=== PATIENT | male | born 1935 | race Caucasian/White ===

== ENCOUNTER → 2017-01-08 | Outpatient (CLI) | payer OTHER | LOC: BMCIMAGING 08:56 | PROVIDERS: ATTEND Internal Medicine | DX: R91.8 Other nonspecific abnormal finding of lung field (principal); I10 Essential (primary) hypertension; I25.10 Atherosclerotic heart disease of native coronary artery without angina pectoris; N40.1 Benign prostatic hyperplasia with lower urinary tract symptoms; F32.9 Major depressive disorder, single episode, unspecified; Z77.090 Contact with and (suspected) exposure to asbestos; Z87.39 Personal history of other diseases of the musculoskeletal system and connective tissue ==

== ENCOUNTER → 2017-01-17 | Outpatient (CLI) | payer OTHER | LOC: FIMAGING 12:50 | PROVIDERS: ATTEND Internal Medicine | DX: R91.8 Other nonspecific abnormal finding of lung field (principal); J47.9 Bronchiectasis, uncomplicated; I25.10 Atherosclerotic heart disease of native coronary artery without angina pectoris; I77.810 Thoracic aortic ectasia ==

== ENCOUNTER → 2017-04-16 | Day surgery (SDC) | payer OTHER ==
[2017-04-16 09:03] LABS: HEMATOCRIT 43.1 % (40.0-51.0)
[2017-04-16 09:11] LABS: INR 1.06 (0.83-1.16); PROTIME(PATIENT) 13.7 SEC (12.0-15.0)
[2017-04-16 09:12] LABS: APTT 31.3 SEC (23.0-38.0)
== END | disposition home or self-care (01) ==
LOC: FIMAGING 07:06
PROVIDERS: ATTEND Internal Medicine Critical Care Medicine
DX: R91.1 Solitary pulmonary nodule (principal); J47.9 Bronchiectasis, uncomplicated

== ENCOUNTER 2017-05-16 06:56 | Day surgery (SDC) | payer OTHER ==
[2017-05-16] MEDS ORDERED: NS 1,000 ML IV SCH (07:15)
[2017-05-16] MEDS ORDERED: NALOXONE HCL 0.4 MG/ML INJ ONE (08:08)
[2017-05-16] MEDS ORDERED: fentaNYL 100 MCG/2 ML INJ ONE (08:08)
[2017-05-16] MEDS ORDERED: MIDAZOLAM 2 MG/2 ML VIAL ONE ×2 (08:08)
[2017-05-16] MEDS ORDERED: FLUMAZENIL 0.5 MG/5 ML MDV IVP ONE (08:08)
== END 2017-05-16 10:00 | disposition home or self-care (01) ==
LOC: FIMAGING 06:56
PROVIDERS: ATTEND Internal Medicine Critical Care Medicine
DX: R91.1 Solitary pulmonary nodule (principal); Z53.8 Procedure and treatment not carried out for other reasons
CPT/HCPCS: J2250; J2310; J3010

== ENCOUNTER → 2017-12-16 | Outpatient (CLI) | payer OTHER ==
--- NOTE | 2017-12-16 11:45 | CPEKG ---
Heart Rate: 64 RR Interval: 938 P-R Interval: 248 QRSD Interval: 94 QT Interval: 444 QTC Interval: 458 P [place]: 82 QRS [place]: 68 T Wave [place]: 68 EKG Severity - ABNORMAL ECG - EKG Impression: SINUS RHYTHM EKG Impression: VENTRICULAR BIGEMINY EKG Impression: FIRST DEGREE AV BLOCK Electronically Signed By: Knvg Corbni 16-Dec-2017 12:09:39
== END ==
LOC: FCP 11:11
PROVIDERS: ATTEND Internal Medicine Infectious Disease
DX: Z13.6 Encounter for screening for cardiovascular disorders (principal)